=== PATIENT | male | born 1950 | race Two or more races ===

== ENCOUNTER → 2022-11-26 | Emergency (ER) | payer OTHER ==
[~2022-11-26] VITALS: Ht 177.8 cm; Wt 79.8 kg
[~2022-11-26] MED LIST: AVAPRO75 MG PO; CARVEDILOL12.5 MG; CLARITIN10 MG; CRESTOR5 MG PO; FENOFIBRATE50 MG; JANUMET XR 1001 EACH PO; LEVOTHYROXINE25 MCG PO; PROTONIX40 MG PO; XARELTO20 MG
== END | disposition home or self-care (01) ==
LOC: ER 19:35
DX: H81.10 Benign paroxysmal vertigo, unspecified ear (principal)
CPT/HCPCS: 96372; 99282; J3490